=== PATIENT | female | born 1990 | race Caucasian/White ===

== ENCOUNTER 2016-12-15 08:32 | Inpatient (IN) | payer MEDICAID, OTHER ==
[~2016-12-15] VITALS: Ht 162.6 cm; Wt 112.9 kg
[~2016-12-15 08:32] MED LIST: COLACE100 MG PO; MOTRIN600 MG PO; NORCO 325 MG-51 TAB PO
[2016-12-15 08:43] VITALS: BP 135/86
--- NOTE | 2016-12-15 09:18 | NUR ---
Patient ambulated to bed 7. RN evaluating patient at bedside.
[2016-12-15] MEDS ORDERED: NACL 0.9% 500 ML IV ONE (09:26)
[2016-12-15] MEDS ORDERED: KETOROLAC 30 MG/ML VIAL IVP ONE (09:30)
[2016-12-15] MEDS ORDERED: ONDANSETRON 4 MG/2 ML VIAL IVP ONE (09:30)
--- NOTE | 2016-12-15 09:30 | NUR ---
US GALLBLADDER AT BEDSIDE
--- NOTE | 2016-12-15 09:31 | NUR ---
PATIENT PRESENTS TO ED WITH C/O RUQ PAIN X 12 DAYS WITH MODERATE NAUSEA BUT DENIES VOMITTING;HX OF CHOLELITHIASIS . SKIN IS PINK/WARM/DRY; AAOX4 WITH EVEN AND STEADY GAIT; LUNGS CLEAR BL; HR EVEN AND REGULAR; PT DENIES ANY FEVER, CP, SOB, OR COUGH AT THIS TIME; PATIENT STATES PAIN OF 8/10 ABDOMINAL PAIN AT THIS TIME;PATIENT POSITIONED FOR COMFORT; HOB ELEVATED; BEDRAILS UP X2; BED DOWN.ALL MONITORS IN PLACED; ER MD MADE AWARE OF PT STATUS.
--- NOTE | 2016-12-15 10:00 | NUR ---
MEDICATED FOR NAUSEA/PAIN. MONITORED
[2016-12-15] MEDS: NACL 0.9% 1,000 ML IV SCH ×2 (10:47→19:55)
[2016-12-15] MEDS ORDERED: DOCUSATE SODIUM 100 MG GELCAP PO PRN (10:50)
[2016-12-15] MEDS ORDERED: ACETAMINOPHEN 325 MG TAB PO PRN (10:50)
[2016-12-15] MEDS ORDERED: MORPHINE SULFATE 2 MG/ML SYR IVP PRN (10:50)
--- NOTE | 2016-12-15 11:11 | NUR ---
Patient will be admitted to care of DR MCKEON. Admited to TELE. Will go to room 105 A. Belongings list completed. Report to ANDI HOOKER.
[2016-12-15 11:20] VITALS: BP 116/77
--- NOTE | 2016-12-15 11:20 | NUR ---
PT ARRIVED AT UNIT FROM ER VIA NUNU, PT IS AAOX4, ON ROOM AIR, IV TO L WRIST 20 G INFUSING WELL, SKIN IS INTACT, INITIAL ASSESSMENT COMPLETED, ORIENTED THE PT TO ROOM AND ENVIRONMENT, DISCUSS PLAN OF CARE, PT VERBALIZED UNDERSTANDING, ALL SAFETY PRECAUTION INITIATED, CALL ,LIGHT WITHIN REACH, WILL CONTINUE TO MONITOR.
--- NOTE | 2016-12-15 13:10 | NUR ---
PT RESTING, NO DISTRESS NOTED, CALL LIGHT WITHIN REACH, WILL CONTINUE TO MONITOR
[2016-12-15] MEDS: HYDROmorphone 1 MG/ML AMP IVP PRN (14:53)
--- NOTE | 2016-12-15 15:01 | NUR ---
DUE MEDICATION GIVEN, PT TOLERATE WELL, C/O OF PAIN, MEDICATED PER MD ORDER, PT RESTING IN BED, NO DISTRESS NOTED, WILL MONITOR.
[2016-12-15 15:57] VITALS: BP 123/77
--- NOTE | 2016-12-15 16:48 | NUR ---
PT CURRENTLY SLEEPING, EASILY AROUSED, NO SIGN OF DISTRESS, CALL LIGHT WITHIN REACH, WILL CONTINUE TO MONITOR.
--- NOTE | 2016-12-15 18:10 | NUR ---
PT SLEEPING EASY TO AROUSE, NO DISTRESS NOTED, CALL LIGHT WITHIN REACH, WILL CONTINUE TO MONITOR.
--- NOTE | 2016-12-15 19:20 | NUR ---
ENDORSED PLAN OF CARE TO NIGHT NURSE, PT IN STABLE CONDITION. PT CURRENTLY IN BED, FAMILY AT BEDSIDE
--- NOTE | 2016-12-15 19:21 | NUR ---
RECEIVED REPORT FROM AM NURSE. PT SITTING UP IN BED, AWAKE, ALERT AND ORIENTED X4. FAMILY MEMBER AT THE BEDSIDE. NO SIGNS OF ACUTE DISTRESS NOTED. ON ROOM AIR. IV ACCESS IS ASYMPTOMATIC AND PATENT. BOWEL AND BLADDER CONTINENCE. PT DENIES PAIN. PLAN OF CARE DISCUSSED, PT VERBALIZED UNDERSTANDING. BED ON LOW POSITION, BILATERAL HALF SIDE RAILS UP, CALL LIGHT WITHIN REACH. WILL CONTINUE TO MONITOR.
[2016-12-15] MEDS: AMPICILLIN 1,000 MG in NACL 0.9% 50 ML IV SCH (19:56)
[2016-12-15 20:00] VITALS: BP 112/69
[2016-12-15 21:31] VITALS: BP 112/69
[2016-12-16] VITALS (7 sets, daily range): BP systolic 101–132; BP diastolic 57–86
[2016-12-16] MEDS: NACL 0.9% 1,000 ML IV SCH ×4 (01:06→20:31)
[2016-12-16] MEDS: HYDROmorphone 1 MG/ML AMP IVP PRN (01:27)
--- NOTE | 2016-12-16 02:12 | NUR ---
PT IS SLEEPING, NO SIGNS OF ACUTE DISTRESS, BED ON LOW POSITION, BILATERAL HALF SIDE RAILS UP, CALL LIGHT WITHIN REACH, WILL CONTINUE TO MONITOR.
[2016-12-16] MEDS: AMPICILLIN 1,000 MG in NACL 0.9% 50 ML IV SCH ×3 (05:04→20:30)
--- NOTE | 2016-12-16 07:10 | NUR ---
ENDORSED PT TO AM NURSE FOR CONTINUITY OF CARE. PT IS STABLE.
--- NOTE | 2016-12-16 07:20 | NUR ---
RECEIVED ON BED AAOX4. NO SOB NOTED. NO C/O PAIN AT THIS TIME. IV TO LT AC PATENT AND INTACT. CHEST CLEAR. ABDOMEN SOFT, BOWEL SOUNDS PRESENT. NPO MAINTAINED. NO EDEMA NOTED. INSTRUCTED PT TO CALL FOR ASSISTANCE, CALL LIGHT WITHIN REACH, PT VERBALIZED UNDERSTANDING.
--- NOTE | 2016-12-16 08:44 | NUR ---
PATIENT HAS BEEN SCREENED AND CATEGORIZED HIGH NUTRITION RISK. PATIENT WILL BE SEEN WITHIN 1-2 DAYS OF ADMISSION. 12/15/16-12/16/[address]
[2016-12-16] MEDS: LACTOBACILLUS RHAMNOSUS GG 1 EACH CAP PO SCH (08:47)
--- NOTE | 2016-12-16 09:20 | NUR ---
SPOKE WITH GEOVANNY FROM [facility] REGARDING HIDA SCAN. GEOVANNY STATED SHE WILL BE HERE AROUND 1 PM TODAY. NPO MAINTAINED PT, VERBALIZED UNDERSTANDING.
[2016-12-16] MEDS: HYDROcodone/APAP 7.5/325 MG 1 TAB PO PRN ×2 (09:22→22:49)
[2016-12-16] MEDS: ONDANSETRON 4 MG/2 ML VIAL IM/IVP PRN ×3 (09:27→22:49)
--- NOTE | 2016-12-16 12:55 | NUR ---
GEOVANNY WHEELED PT TO THE NUCLEAR MED IN STABLE CONDITION. NO SOB NOTED. NO COMPLAINTS MADE. NPO MAINTAINED.
[2016-12-16] MEDS ORDERED: MORPHINE SULFATE 2 MG/ML SYR IVP PRN (14:07)
--- NOTE | 2016-12-16 14:18 | NUR ---
MORPHINE 2 MG IVP GIVEN ORDERED FOR HIDA SCAN PROCEDURE. PAIN SCALE IS ZERO PER PT.
--- NOTE | 2016-12-16 14:34 | NUR ---
12/16/16 RD INITIAL ASSESSMENT COMPLETED PLEASE REFER TO NUTRITION ASSESSMENT UNDER CARE ACTIVITY FOR ESTIMATED NUTRITIONAL NEEDS. 1. WHEN MEDICALLY FEASIBLE, RESUME DIET AND ADVANCE TOLERATED TO LOW FAT DIET WITHIN 2-3 DAYS 2. PROVIDE NUTRITION THERAPY EDUCATION NEEDED 3. RD TO FOLLOW UP WITHIN 2-3 DAYS; HIGH RISK DAKOTAH PEREZ RD
--- NOTE | 2016-12-16 15:15 | NUR ---
PT CAME BACK FROM [facility] IN STABLE CONDITION.
--- NOTE | 2016-12-16 16:14 | NUR ---
DR. GARSIA CALLED AND ASKED FOR THE RESULTS OF HIDA SCAN. NO RESULTS FOUND ON EMR. SPOKE WITH PEDRO LUIS FROM RADIOLOGY, RESULTS HAS NOT BEEN READ BY THE RADIOLOGIST YET. PEDRO LUIS STATED THEY WILL GIVE ME A CALL WHEN THE RESULTS ARE IN.
--- NOTE | 2016-12-16 17:30 | NUR ---
pt seen by Dr. Garzon with new orders.
--- NOTE | 2016-12-16 17:40 | NUR ---
consent for surgery signed by pt. procedure explained by Dr. Garzon at the bedside earlier. pt verbalized understanding.
--- NOTE | 2016-12-16 18:00 | NUR ---
PT TOLERATED LOW FAT DIET FOR DINNER. INSTRUCTED ON NPO POST MIDNIGHT TONIGHT, PT VERBALIZED UNDERSTANDING.
--- NOTE | 2016-12-16 18:56 | NUR ---
PT RESTING. NO SOB NOTED. NO COMPLAINTS MADE. WILL ENDORSE TO NEXT SHIFT NURSE FOR CONTINUITY OF CARE.
--- NOTE | 2016-12-16 19:20 | NUR ---
RECEIVED PT AWAKE ON BED WITH FAMILY MEMBERS AT BEDSIDE, VITAL SIGNS STABLE, DENIES ANY PAIN, INSTRUCTED NPO AFTER MIDNIGHT FOR SURGERY IN AM, VERBALIZED UNDERSTANDING, IVF INFUSING WELL, PLAN OF CARE DISCUSSED, CALL LIGHT WITHIN REACH.
--- NOTE | 2016-12-16 20:30 | NUR ---
PT AMBULATORY TO BR WITH STEADY GAIT, DUE IV ANTIBIOTIC ADMINISTERED, ALL NEEDS ATTENDED.
--- NOTE | 2016-12-16 22:00 | NUR ---
PT REQUESTING FOR SNACK, TURKEY SANDWICH PROVIDED, CONSUMED 100%, AWARE OF NPO AFTER MIDNIGHT, MONITORED CLOSELY.
[2016-12-17] VITALS (7 sets, daily range): BP systolic 99–125; BP diastolic 55–80
--- NOTE | 2016-12-17 | NUR ---
PT SLEEPING, EASILY AROUSABLE, VITAL SIGNS STABLE, DENIES PAIN AT THIS TIME, NPO AFTER MIDNIGHT ORDERED, IVF INFUSING WELL, CONTINUE TO MONITOR CLOSELY.
[2016-12-17] MEDS: NACL 0.9% 1,000 ML IV SCH ×2 (02:47→04:41)
--- NOTE | 2016-12-17 04:00 | NUR ---
PT SLEEPING, EASILY AROUSABLE, VITAL SIGNS STABLE, DENIES ANY PAIN, IVF INFUSING WELL, MONITORED CLOSELY.
[2016-12-17] MEDS: AMPICILLIN 1,000 MG in NACL 0.9% 50 ML IV SCH ×3 (04:41→20:42)
--- NOTE | 2016-12-17 05:50 | NUR ---
ROUNDED ON PT, SEEN SLEEPING, NO SIGNS OF DISTRESS, MAINTAINED ON NPO, IVF INFUSING WELL, MONITORED CLOSELY.
--- NOTE | 2016-12-17 07:10 | NUR ---
PT SLEEPING, NO SIGNS OF DISTRESS, REPORT GIVEN TO RN NORMA FOR CONTINUITY OF CARE.
--- NOTE | 2016-12-17 07:30 | NUR ---
RECEIVED ON BED AAOX4. NO SOB NOTED. NO C/O PAIN AT THIS TIME. IV TO LT AC PATENT AND INTACT. CHEST CLEAR. ABDOMEN SOFT, BOWEL SOUNDS PRESENT. NPO MAINTAINED FOR PROCEDURE. NO EDEMA NOTED. INSTRUCTED PT TO CALL FOR ASSISTANCE, CALL LIGHT WITHIN REACH, PT VERBALIZED UNDERSTANDING.
[2016-12-17] MEDS: FERROUS SULFATE 325 MG TABEC PO SCH (08:00)
--- NOTE | 2016-12-17 08:25 | NUR ---
PT WHEELED TO SURGERY IN STABLE CONDITION. NO COMPLAINTS MADE. NPO MAINTAINED. PT VERBALIZED UNDERSTANDING.
[2016-12-17] MEDS: LACTOBACILLUS RHAMNOSUS GG 1 EACH CAP PO SCH (08:33)
[2016-12-17] MEDS ORDERED: GLYCOPYRROLATE 0.2 MG/ML VIAL ONE (09:15)
[2016-12-17] MEDS ORDERED: ROCURONIUM 50 MG/5 ML VIAL IV ONE (09:15)
[2016-12-17] MEDS ORDERED: DESFLURANE 240 ML BTL INH ONE (09:15)
[2016-12-17] MEDS ORDERED: ONDANSETRON 4 MG/2 ML VIAL ONE ×2 (09:15→13:30)
[2016-12-17] MEDS ORDERED: DEXAMETHASONE 4 MG/ML VIAL ONE (09:15)
[2016-12-17] MEDS ORDERED: SUCCINYLCHOLINE CHLORIDE 200 MG/10 ML VIAL IVP ONE (09:15)
[2016-12-17] MEDS ORDERED: BUPIVACAINE-MPF 0.25% 30 ML VIAL INJ ONE (09:25)
[2016-12-17] MEDS ORDERED: MEPERIDINE 50 MG/ML SYR ONE (09:31)
[2016-12-17] MEDS ORDERED: MIDAZOLAM 2 MG/2 ML VIAL ONE (09:31)
[2016-12-17] MEDS ORDERED: fentaNYL 0.05 MG/ML VIAL ONE (09:31)
[2016-12-17] MEDS ORDERED: LEVOFLOXACIN 500 MG/D5W PREMIX 100 ML IV ONE (09:33)
[2016-12-17] MEDS ORDERED: metroNIDAZOLE 500 MG/NS PREMIX 100 ML IV ONE (10:19)
[2016-12-17] MEDS ORDERED: MIDAZOLAM 2 MG/2 ML VIAL IVP ONE (10:25)
[2016-12-17] MEDS ORDERED: MEPERIDINE 25 MG/ML SYR IVP PRN ×2 (10:25)
[2016-12-17] MEDS ORDERED: METOCLOPRAMIDE 10 MG/2 ML INJ VIAL IVP PRN (10:25)
[2016-12-17] MEDS ORDERED: THROMBIN KIT 20 MU VIAL TP ONE (10:57)
[2016-12-17] MEDS ORDERED: MEPERIDINE 25 MG/ML SYR ONE (11:52)
--- NOTE | 2016-12-17 12:30 | NUR ---
PT BACK FROM PACU INSTABLE CONDITION S/P LAPAROSCOPIC CHOLECYSTECTOMY. PT AAO, SLIGHTLY DROWSY. VITAL SIGNS STABLE. SCD'S IN PLACE. WITH 5 SMALL ABDOMINAL INCISIONS, SEALED WITH DERMABOND, SURGICAL SITES CLEAN, DRY AND INTACT, OPEN TO AIR.
[2016-12-17] MEDS: DEXT 5% / NACL 0.45% 1,000 ML IV SCH ×2 (12:51→21:25)
[2016-12-17] MEDS ORDERED: ceFAZolin 1,000 MG VIAL ONE (13:30)
[2016-12-17] MEDS ORDERED: PROPOFOL 200 MG/20 ML VIAL IV ONE (13:30)
--- NOTE | 2016-12-17 13:40 | NUR ---
DILAUDID IV PULLED OUT FROM THE PYXIS FOR PT'S 10 POST OP PAIN BUT PT REFUSED TO TAKE IT. RISKS AND BENEFITS EXPLAINED TO PT, VERBALIZED UNDERSTANDING. DILAUDID IVP RETURNED TO PHARMACY UNOPENED. PHARMACIST (JESSICA) MADE AWARE.
[2016-12-17] MEDS: HYDROcodone/APAP 7.5/325 MG 1 TAB PO PRN ×3 (13:51→23:56)
--- NOTE | 2016-12-17 15:53 | NUR ---
PT ABLE TO AMBULATE TO THE BATHROOM WITH MODERATE ASSISTANCE, PT VOIDED FREELY. ACTIVITY TOLERATED WELL.
[2016-12-17] MEDS: HYDROmorphone 1 MG/ML AMP IVP PRN (16:39)
--- NOTE | 2016-12-17 17:00 | NUR ---
PROVIDED PT WITH INCENTIVE SPIROMETRY, INSTRUCTIONS GIVEN, PT VERBALIZED UNDERSTANDING.
[2016-12-17] MEDS: ONDANSETRON 4 MG/2 ML VIAL IM/IVP PRN (17:51)
--- NOTE | 2016-12-17 18:57 | NUR ---
PT RESTING. FAMILY AT THE BEDSIDE VISITING. NO SOB NOTED. NO SIGNS OF PAIN AT THIS TIME. WILL ENDORSE TO NEXT SHIFT NURSE FOR CONTINUITY OF CARE.
--- NOTE | 2016-12-17 19:20 | NUR ---
RECEIVED PT AWAKE ON BED TALKING TO FAMILY MEMBERS AT BEDSIDE, COMPLAINING OF PAIN, WILL MEDICATE PRN WHEN DUE, S/P LAP CHOLECYSTECTOMY WITH SMALL ABDOMINAL INCISION X5, SEALED WITH DERMABOND, OPEN TO AIR, NO SIGNS OF BLEEDING OR DRAINAGE, TOLERATING CLEAR LIQUID, NOT PASSING GAS YET, PLAN OF CARE DISCUSS, CALL LIGHT WITHIN REACH.
--- NOTE | 2016-12-17 20:00 | NUR ---
PT IN PAIN, MEDICATED PRN WITH NORCO, AMBULATED TO BR WITH ASSIST AND VOIDED FREELY, ASSISTED BACK TO BED, ENCOURAGE TO USE INCENTIVE SPIROMETER WHILE AWAKE, VERBALIZED UNDERSTANDING, PUT BACK ON IVF OF D5 1/2 NS @ 100ML/H, ALL NEEDS ATTENDED.
--- NOTE | 2016-12-17 20:50 | NUR ---
PT UNABLE TO DO IS DUE TO PAIN
--- NOTE | 2016-12-17 23:10 | NUR ---
ASSISTED TO BR BY DEMURRAGE AGENT, VOIDED FREELY, COMPLAINING OF PAIN, WILL MEDICATE WHEN DUE, VITAL SIGNS STABLE, AFEBRILE, CONTINUE TO MONITOR CLOSELY.
[2016-12-18] VITALS: BP 133/74
[2016-12-18] MEDS: HYDROcodone/APAP 7.5/325 MG 1 TAB PO PRN ×4 (03:57→20:14)
--- NOTE | 2016-12-18 04:02 | NUR ---
PT AWAKE COMPLAINING OF PAIN, MEDICATED PRN WITH NORCO PO, MONITORED CLOSELY.
[2016-12-18] MEDS: AMPICILLIN 1,000 MG in NACL 0.9% 50 ML IV SCH ×3 (04:34→20:14)
--- NOTE | 2016-12-18 05:18 | NUR ---
PT AMBULATED TO WITH ASSIST, VOIDED FREELY, IV ANTIBIOTIC INFUSING WELL, VERBALIZE BURPING BUT NOT PASSING GAS YET, ABDOMINAL INCISIONS INTACT, NO SIGNS OF BLEEDING OR DRAINAGE NOTED, MONITORED CLOSELY.
--- NOTE | 2016-12-18 06:55 | NUR ---
PT ASSISTED TO BR AND VOIDED FREELY, MADE AWARE OF NEXT DUE PRN PAIN MEDICATION, ENCOURAGE TO USE IS, MONITORED CLOSELY.
--- NOTE | 2016-12-18 07:15 | NUR ---
RECEIVED REPORT FROM ANDI GARCÍA. PATIENT IS ALERT, AWAKE AND ORIENTED X4. NO SIGNS AND SYMPTOMS OF DISTRESS NOTED AT THIS TIME. PATIENT LUNG SOUNDS ARE CLEAR. BOWEL SOUNDS ARE HYPOACTIVE. HAS IV IN LEFT HAND 22G HEPLOCK, AND IV IN RIGHT HAND 22G INFUSING FLUID. PATIENT HAS SCD ON. BED IN LOWEST POSITION, SIDERAILS UP X2, CALL LIGHT WITHIN REACH. WILL CONTINUE TO MONITOR.
--- NOTE | 2016-12-18 07:20 | NUR ---
PT AWAKE, NO SIGNS OF DISTRESS, REPORT GIVEN TO ANDI GUTIERREZ FOR CONTINUITY OF CARE.
[2016-12-18] MEDS: DEXT 5% / NACL 0.45% 1,000 ML IV SCH ×2 (07:25→17:25)
[2016-12-18 08:00] VITALS: BP 132/87
--- NOTE | 2016-12-18 09:00 | NUR ---
PATIENT LAYING BED, REQUESTED THAT SHE WANTS TO WALK TO THE BATHROOM BUT NEEDS HELP. WILL ASSIST THE PATIENT.
[2016-12-18] MEDS: LACTOBACILLUS RHAMNOSUS GG 1 EACH CAP PO SCH (09:20)
--- NOTE | 2016-12-18 09:20 | NUR ---
ASSISTED PATIENT TO BATHROOM, AND BACK INTO BED. BED IN LOWEST POSITION, HOB AT SEMI-FOWLERS, CALL LIGHT PLACED WITHIN REACH. PATIENT STABLE AT THIS TIME.
[2016-12-18] MEDS: FERROUS SULFATE 325 MG TABEC PO SCH (09:23)
--- NOTE | 2016-12-18 13:50 | NUR ---
DR. GARSIA GAVE THE OKAY TO DISCHARGE PATIENT. PATIENT STATED THAT SHE STILL HAS PAIN AND WOULD LIKE A PAIN MED BEFORE SHE GOES HOME SO THAT IT COVERS HERE WHILE SHE GETS HER PRESCRIPTION FILLED. WILL TALK TO DR. ZALDIVAR.
--- NOTE | 2016-12-18 14:00 | NUR ---
DR ZALDIVAR STATED THAT HE WOULD LIKE TO KEEP THE PATIENT HERE FOR TODAY AND TONIGHT SINCE SHE IS STILL IN PAIN. POSSIBLE DISCHARGE IN THE MORNING.
[2016-12-18 16:00] VITALS: BP 118/71
--- NOTE | 2016-12-18 19:20 | NUR ---
ENDORSED PATIENT TO TOOL DESIGN DRAFTER RN FOR CONTINUITY OF CARE. PATIENT IS IN STABLE CONDITION AT THIS TIME.
--- NOTE | 2016-12-18 19:25 | NUR ---
RECEIVED REPORT FROM AM NURSE. PT IS AAOX4, SITTING UP IN BED, WITH FAMILY MEMBER AT THE BEDSIDE. SHOWING NO SIGNS OF ACUTE DISTRESS. ON ROOM AIR, IV ACCESS IS ASYMPTOMATIC AND PATENT. BOWEL AND BLADDER CONTINENCE. PLAN OF CARE DISCUSSED, PT VERBALIZED UNDERSTANDING. BED ON LOW POSITION, BILATERAL HALF SIDE RAILS UP, CALL LIGHT WITHIN REACH, WILL CONTINUE TO MONITOR.
[2016-12-18 20:00] VITALS: BP 133/79
[2016-12-18] MEDS ORDERED: HYDROmorphone 1 MG/ML AMP IVP PRN (23:40)
--- NOTE | 2016-12-18 23:44 | NUR ---
PT STATES SHE IS IN PAIN 12/24, DR. RAY MADE AWARE AND WILL ORDER NEW MEDICATION FOR SEVERE PAIN. WILL AWAIT NEW ORDER.
[2016-12-19] VITALS: BP 118/81
--- NOTE | 2016-12-19 01:29 | NUR ---
PT IS SLEEPING, ON O2 2L VIA NC. NO SIGNS OF ACUTE DISTRESS, BED ON LOW POSITION, BILATERAL HALF SIDE RAILS UP, CALL LIGHT WITHIN REACH, WILL CONTINUE TO MONITOR.
[2016-12-19] MEDS: DEXT 5% / NACL 0.45% 1,000 ML IV SCH (03:25)
[2016-12-19] MEDS: HYDROcodone/APAP 7.5/325 MG 1 TAB PO PRN ×2 (03:34→09:02)
[2016-12-19] MEDS: AMPICILLIN 1,000 MG in NACL 0.9% 50 ML IV SCH ×2 (04:20→13:04)
--- NOTE | 2016-12-19 05:19 | NUR ---
PT IS SLEEPING, EASY TO AROUSE. NO SIGNS OF ACUTE DISTRESS, BED ON LOW POSITION, BILATERAL HALF SIDE RAILS UP, CALL LIGHT WITHIN REACH, WILL CONTINUE TO MONITOR.
--- NOTE | 2016-12-19 07:20 | NUR ---
RECEIVED REPORT FROM INTERLOCKER RN. PATIENT IS AWAKE IN BED, NO SIGNS AND SYMPTOMS OF DISTRESS NOTED AT THIS TIME. LUNG SOUNDS ARE CLEAR, BOWEL SOUNDS ARE ACTIVE. HAS LEFT HAND IV 22G ON SALINE LOCK, AND RIGHT HAND IV 22G ON SALINE LOCK. SITES ARE CLEAN, DRY AND PATENT. INFORMED PATIENT OF PLAN OF CARE, PATIENT VERBALIZED UNDERSTANDING. BED IN LOWEST POSITION, SIDERAILS UP X2, CALL LIGHT WITHIN REACH. WILL CONTINUE TO MONITOR.
--- NOTE | 2016-12-19 07:25 | NUR ---
ENDORSED PT TO AM NURSE. PT IN STABLE CONDITION.
[2016-12-19 08:00] VITALS: BP 112/62
[2016-12-19] MEDS: LACTOBACILLUS RHAMNOSUS GG 1 EACH CAP PO SCH (09:01)
[2016-12-19] MEDS: FERROUS SULFATE 325 MG TABEC PO SCH (09:02)
--- NOTE | 2016-12-19 10:15 | NUR ---
12/19/16 RD FOLLOW-UP ASSESSMENT COMPLETED PLEASE REFER TO NUTRITION ASSESSMENT UNDER CARE ACTIVITY FOR ESTIMATED NUTRITIONAL NEEDS. 1. CONTINUE REGULAR DIET 2. RD TO FOLLOW-UP 3-5 DAYS, MODERATE RISK DAKOTAH PEREZ RD
[2016-12-19] MEDS ORDERED: POTASSIUM CHLORIDE 10 MEQ TABER PO SCH (13:00)
[2016-12-19] MEDS ORDERED: COLACE100 M1 PO (14:41)
[2016-12-19] MEDS ORDERED: MACROBID100 M1 PO (14:41)
[2016-12-19] MEDS ORDERED: PROBIOTIC & ACI1 CAP PO (14:41)
[2016-12-19] MEDS ORDERED: NORCO 325 MG-7.1 TAB PO (14:43)
[2016-12-19 15:25] VITALS: BP 119/67
--- NOTE | 2016-12-19 16:25 | NUR ---
PATIENT BEING DISCHARGED. INSTRUCTIONS GIVEN ON WHEN TO FOLLOW UP. NO STRENOUS ACTIVITY INCLUDING EXERCISE FOR A COUPLE OF WEEKS. PRESCRIPTION GIVEN. INSTRUCTED ON S/S TO SEEK EMERGENCY MEDICAL ATTENTION. PATIENT VERBALIZED UNDERSTANDING. IV SITES WERE ON SALINE LOCK. DISCONTINUED IV SITES, APPLIED DRESSING. CLEAN DRY AND INTACT. NO SIGNS AND SYMPTOMS OF DISTRESS NOTED. ID BANDS REMOVED.
== END 2016-12-19 16:25 | disposition home or self-care (01) | DRG 263 ==
LOC: MED 08:32 → MTU 10:47
PROVIDERS: ADMIT Family Medicine Sports Medicine; ATTEND Family Medicine Sports Medicine
PROC: 0FT44ZZ Resection of Gallbladder, Percutaneous Endoscopic Approach (ICD-10-PCS; principal; 2016-12-17 09:15)
DX: K80.00 Calculus of gallbladder with acute cholecystitis without obstruction (principal); E44.0 Moderate protein-calorie malnutrition; E11.65 Type 2 diabetes mellitus with hyperglycemia; K82.1 Hydrops of gallbladder; Z68.41 Body mass index [BMI] 40.0-44.9, adult; N39.0 Urinary tract infection, site not specified; D64.9 Anemia, unspecified; E78.1 Pure hyperglyceridemia; F41.9 Anxiety disorder, unspecified; E66.01 Morbid (severe) obesity due to excess calories; R74.0 Nonspecific elevation of levels of transaminase and lactic acid dehydrogenase [LDH]; Z79.899 Other long term (current) drug therapy

== ENCOUNTER 2017-09-30 02:53 | Emergency (ER) | payer OTHER ==
[~2017-09-30] VITALS: Ht 157.5 cm; Wt 108.9 kg
[~2017-09-30 02:53] MED LIST changes: +ACET-2863 PO; -COLACE100 MG PO; +DOCU-299 PO; -MOTRIN600 MG PO; +NITR100C7 PO; -NORCO 325 MG-51 TAB PO; +NUTR1CAP70 PO
[2017-09-30 03:00] VITALS: BP 142/97
--- NOTE | 2017-09-30 03:02 | NUR ---
PT CAME IN WITH C/O SWELLING IN LIPS AND SOB. PT STATES SHE HAS ANXIETY FROM THE SWELLING. NO MED HX AND NKA . DENIES N/V/D; SKIN IS PINK/WARM/DRY; AAOX4 WITH EVEN AND STEADY GAIT; LUNGS CLEAR BL; HR EVEN AND REGULAR; PT DENIES ANY FEVER, CP, SOB, OR COUGH AT THIS TIME; PATIENT STATES PAIN OF 0/10 AT THIS TIME; VSS; PATIENT POSITIONED FOR COMFORT; HOB ELEVATED; BEDRAILS UP X2; BED DOWN. ER MD MADE AWARE OF PT STATUS.
--- NOTE | 2017-09-30 03:05 | NUR ---
PT TO ER BED 8
[2017-09-30] MEDS ORDERED: predniSONE 20 MG TAB PO ONE (03:40)
--- NOTE | 2017-09-30 03:53 | NUR ---
Patient discharged with v/s stable. Written and verbal after care instructions given and explained. Patient alert, oriented and verbalized understanding of instructions. Ambulatory with steady gait. All questions addressed prior to discharge. ID band removed. Patient advised to follow up with PMD. Rx of PREDNISONE AND DIPHENHYDRAMINE HYDROCHLORIDE WERE given. Patient educated on indication of medication including possible reaction and side effects. Opportunity to ask questions provided and answered.
[2017-09-30 03:55] VITALS: BP 142/97
== END 2017-09-30 03:53 | disposition home or self-care (01) ==
LOC: MED 02:53
DX: T78.49XA Other allergy, initial encounter (principal); R20.2 Paresthesia of skin; Z79.899 Other long term (current) drug therapy; X58.XXXA Exposure to other specified factors, initial encounter
CPT/HCPCS: 81002; 81025; 99283; J7512

== ENCOUNTER 2017-11-01 17:23 | Emergency (ER) | payer OTHER ==
[~2017-11-01] VITALS: Ht 157.5 cm; Wt 113.4 kg
--- NOTE | 2017-11-01 17:30 | NUR ---
PT AMBULATES TO BED 4
[2017-11-01 17:35] VITALS: BP 127/83
--- NOTE | 2017-11-01 17:35 | NUR ---
27 YO FEMALE BIB SELF FOR REFERRAL FROM OUTSIDE CLINIC FOR ULTRASOUND TO R/O DVT; PT C/O RIGHT CALF SORENESS PAIN X YESTERDAY." PT HAS NO SWELLING NO DISCOLORATION, NO EXCESS WARMTH, AND DENIES LONG FLIGHT OR CAR TRIPS; AMBULATORY WITH STEADY GAIT; PT DENIES N/V/D; AAOX4; LUNGS CLEAR BL; HR EVEN AND REGULAR; PT DENIES ANY FEVER, CP, SOB, OR COUGH AT THIS TIME; PATIENT STATES PAIN OF 6/10 AT THIS TIME; VSS; PATIENT POSITIONED FOR COMFORT; HOB ELEVATED; BEDRAILS UP X1; BED DOWN. ER MD MADE AWARE OF PT STATUS. HX---DENIES RX---NONE
--- NOTE | 2017-11-01 17:39 | NUR ---
URINE CUP HANDED TO PT FOR URINE SAMPLE
--- NOTE | 2017-11-01 17:40 | NUR ---
URINE COLLECTED FROM PT AND GIVEN TO LAB
--- NOTE | 2017-11-01 17:51 | NUR ---
Patient being evaluated by physician at bedside.
[2017-11-01] MEDS ORDERED: KETOROLAC 30 MG/ML VIAL IVP ONE (18:00)
[2017-11-01 18:23] LABS: BASOPHILS % (AUTO) 0.3 % (0.0-2.0); EOSINOPHILS # (AUTO) 0.1 K/uL (0-0.4); EOSINOPHILS % (AUTO) 1.3 % (0.0-4.0); HEMATOCRIT 35.7 % (36-48); HEMOGLOBIN 11.5 g/dL (12.0-16.0); LYMPHOCYTES # (AUTO) 1.6 K/uL (2.5-16.5); MEAN CORPUSCULAR HEMOGLOBIN 25 pg (27-31); MEAN CORPUSCULAR HGB CONC 32 g/dL (33-37); MEAN CORPUSCULAR VOLUME 76.9 fL (80-94); MONOCYTES # (AUTO) 0.5 K/uL (0.8-1.0); MONOCYTES % (AUTO) 8.7 % (1.7-9.3); NEUTROPHILS # (AUTO) 3.3 K/uL (1.8-7.7); NEUTROPHILS % (AUTO) 60.7 % (42.2-75.2); PLATELET COUNT (AUTO) 323 K/uL (140-450); RED BLOOD CELL COUNT(AUTO) 4.65 MIL/uL (4.20-5.40); RED CELL DISTRIBUTION WIDTH 14.7 % (11.6-13.7); WHITE BLOOD COUNT (AUTO) 5.4 K/uL (4.8-10.8)
[2017-11-01 18:23] LABS: APPEARANCE,URINE SL CLOUDY (CLEAR); BILIRUBIN,URINE NEGATIVE (NEGATIVE); BLOOD, URINE 2+ (NEGATIVE); COLOR,URINE YELLOW (YELLOW); LEUKOCYTE ESTERASE ,URINE 1+ (NEGATIVE); NITRITE, URINE NEGATIVE (NEGATIVE); PH,URINE 6.5 (5.0-9.0); UGLUCOSE NEGATIVE (NEGATIVE)
[2017-11-01 18:35] LABS: ANION GAP 11.8 (8-16); CREATININE 0.5 mg/dL (0.6-1.3); POTASSIUM 3.8 mmol/L (3.5-5.1)
[2017-11-01 18:42] LABS: RBC,URINE 3-10 (FEW) /HPF (0-5)
[2017-11-01 18:52] LABS: ALBUMIN 3.7 g/dL (3.4-5.0); TOTAL BILIRUBIN 0.7 mg/dL (0.0-1.0)
[2017-11-01 18:54] LABS: D-DIMER < 100 ng/ml (0-400)
[2017-11-01] MEDS ORDERED: LEVOFLOXACIN 500 MG TAB PO ONE (19:05)
[2017-11-01 19:14] LABS: PROTHROMBIN TIME 9.7 secs (10.8-13.4)
--- NOTE | 2017-11-01 19:14 | NUR ---
REPORT FROM ANDI XIE
[2017-11-01 21:10] VITALS: BP 124/79
--- NOTE | 2017-11-01 21:10 | NUR ---
Patient discharged with v/s stable. Written and verbal after care instructions given and explained. Patient alert, oriented and verbalized understanding of instructions. Ambulatory with steady gait. All questions addressed prior to discharge. ID band removed. Patient advised to follow up with PMD. Rx of LEVAQUIN AND FIORINAL given. Patient educated on indication of medication including possible reaction and side effects. Opportunity to ask questions provided and answered.
== END 2017-11-01 21:10 | disposition home or self-care (01) ==
LOC: MED 17:23
DX: N30.90 Cystitis, unspecified without hematuria (principal); Z90.49 Acquired absence of other specified parts of digestive tract; Z79.891 Long term (current) use of opiate analgesic; Z79.899 Other long term (current) drug therapy
CPT/HCPCS: 36415; 80053; 81001; 81025; 82150; 82550; 83690; 84703; 85025; 85379; 85610; 85730; 87086; 93971; 96374; 99285; J1885

== ENCOUNTER 2018-01-27 03:47 | Emergency (ER) | payer OTHER ==
[~2018-01-27] VITALS: Ht 157.5 cm; Wt 110.2 kg
[~2018-01-27 03:47] MED LIST changes: -ACET-2863 PO; +HYDR-5123 PO
[2018-01-27 03:52] VITALS: BP 126/68
--- NOTE | 2018-01-27 03:52 | NUR ---
TO BED # 2 AMBULATORY, REPORT GIVEN TO CRYSTAL ESCAMILLA
[2018-01-27] MEDS ORDERED: KETOROLAC 30 MG/ML VIAL IM ONE (04:35)
[2018-01-27] MEDS ORDERED: DIAZEPAM 5 MG TAB PO ONE (04:35)
--- NOTE | 2018-01-27 04:40 | NUR ---
PT PRESENTED ER WITH C/O OF CHEST PAIN X 4 DAYS. PT HAS BEEN HAVING PAIN IN THE LEFT ARM. PT STATES IT IS SHARP PAIN PAIN LEVEL IS 5/10. PT HAS BEEN TAKING ASPIRIN FOR PAIN BUT HAS HAD NO RELIEF. MEDICAL HX IS GALLBLADDER REMOVAL. AND ANXIETY. KNA. PT IS A/O X4.SKIN IS PINK/WARM/DRY; EVEN AND STEADY GAIT; VSS; PATIENT POSITIONED FOR COMFORT; HOB ELEVATED; BEDRAILS UP X2; BED DOWN. ER MD MADE AWARE OF PT STATUS.
[2018-01-27 05:27] VITALS: BP 112/83
--- NOTE | 2018-01-27 05:27 | NUR ---
Patient discharged with v/s stable. Written and verbal after care instructions given and explained. Patient alert, oriented and verbalized understanding of instructions. Ambulatory with steady gait. All questions addressed prior to discharge. ID band removed. Patient advised to follow up with PMD. Rx of VALIUM AND NAPROXYN WAS given. Patient educated on indication of medication including possible reaction and side effects. Opportunity to ask questions provided and answered.
== END 2018-01-27 05:27 | disposition home or self-care (01) ==
LOC: MED 03:47
DX: M25.512 Pain in left shoulder (principal); R07.89 Other chest pain; Z79.899 Other long term (current) drug therapy
CPT/HCPCS: 71045; 93005; 96372; 99284; J1885; Q0092

== ENCOUNTER 2018-03-20 23:39 | Emergency (ER) | payer OTHER ==
[~2018-03-20] VITALS: Ht 160 cm; Wt 111.2 kg
[2018-03-20 23:40] VITALS: BP 149/89
--- NOTE | 2018-03-20 23:47 | NUR ---
PT AMB TO ER BED 2 W/O ASST
--- NOTE | 2018-03-20 23:54 | NUR ---
PT PRESENTS TO ED WITH C/O SOB AND THROAT TIGHTNESS S/P EATING SHRIMP PASTA X 1999 TODAY. PT ABLE TO SPEAK CLEARLY IN FULL AND COMPLETE SENTENCES. LUNG SOUNDS CLEAR BILATERALLY. NO S/S OF DISTRESS NOTED. PT PLACED INTO BED, PENDING MD BOYD. PMH--DENIES RX--DENIES
[2018-03-21] MEDS ORDERED: diphenhydrAMINE 50 MG CAP PO ONE ×2 (00:36)
--- NOTE | 2018-03-21 01:04 | NUR ---
Patient discharged with v/s stable. Written and verbal after care instructions given and explained. Patient alert, oriented and verbalized understanding of instructions. Ambulatory with steady gait. All questions addressed prior to discharge. ID band removed. Patient advised to follow up with PMD. Rx of PREDNISONE, BENDRYL given. Patient educated on indication of medication including possible reaction and side effects. Opportunity to ask questions provided and answered.
[2018-03-21 01:05] VITALS: BP 141/86
== END 2018-03-21 01:04 | disposition home or self-care (01) ==
LOC: MED 23:39
DX: T78.1XXA Other adverse food reactions, not elsewhere classified, initial encounter (principal); R06.00 Dyspnea, unspecified; R11.0 Nausea; X58.XXXA Exposure to other specified factors, initial encounter
CPT/HCPCS: 99283; Q0163

== ENCOUNTER 2018-06-15 00:09 | Emergency (ER) | payer OTHER ==
[~2018-06-15] VITALS: Ht 160 cm; Wt 108.9 kg
[2018-06-15 00:30] VITALS: BP 119/65
--- NOTE | 2018-06-15 00:30 | NUR ---
PATIENT AMBULATED TO ER BED 7.
--- NOTE | 2018-06-15 00:45 | NUR ---
PT IS A 27 Y/O FEMALE WHO PRESENTS TO THE ED C/O R FLANK PAIN. PER PT IT HAD STARTED X3 DAYS AGO. PT REPORTS 8/10 SHARP R FLANK PAIN THAT RADIATES TO THE BACK. PT DENIES CP, SOB, REPORTS NAUSEA/DIARRHEA WITH COLD CLAMMY SWEATS AND WEAKNESS. PT AWAKE AND ALERT, RR EVEN/UNLABORED. PT REPOSITIONED FRO COMFORT, BED IN LOWEST POSITION. ER MD DR. OLMEDO NOTIFIED. WILL CONTINUE TO MONITOR.
[2018-06-15] MEDS ORDERED: MORPHINE SULFATE 4 MG/ML SYR IM ONE (01:15)
[2018-06-15 01:23] LABS: BASOPHILS % (AUTO) 0.5 % (0.0-2.0); EOSINOPHILS # (AUTO) 0.1 K/uL (0-0.4); EOSINOPHILS % (AUTO) 0.8 % (0.0-4.0); HEMATOCRIT 37.5 % (36-48); HEMOGLOBIN 12.1 g/dL (12.0-16.0); LYMPHOCYTES # (AUTO) 2.2 K/uL (2.5-16.5); LYMPHOCYTES % (AUTO) 27.6 % (20.5-51.1); MEAN CORPUSCULAR HEMOGLOBIN 24 pg (27-31); MEAN CORPUSCULAR HGB CONC 32 g/dL (33-37); MEAN CORPUSCULAR VOLUME 75.8 fL (80-94); MONOCYTES # (AUTO) 0.6 K/uL (0.8-1.0); NEUTROPHILS # (AUTO) 5.2 K/uL (1.8-7.7); NEUTROPHILS % (AUTO) 64.1 % (42.2-75.2); PLATELET COUNT (AUTO) 327 K/uL (140-450); RED BLOOD CELL COUNT(AUTO) 4.95 MIL/uL (4.20-5.40); RED CELL DISTRIBUTION WIDTH 15.7 % (11.6-13.7); WHITE BLOOD COUNT (AUTO) 8.1 K/uL (4.8-10.8)
[2018-06-15 01:29] LABS: APPEARANCE,URINE SL CLOUDY (CLEAR); BILIRUBIN,URINE NEGATIVE (NEGATIVE); BLOOD, URINE NEGATIVE (NEGATIVE); COLOR,URINE YELLOW (YELLOW); LEUKOCYTE ESTERASE ,URINE NEGATIVE (NEGATIVE); NITRITE, URINE NEGATIVE (NEGATIVE); UGLUCOSE NEGATIVE (NEGATIVE)
[2018-06-15 01:33] LABS: CARBON DIOXIDE 24.8 mmol/L (21-32); CREATININE 0.7 mg/dL (0.6-1.3); POTASSIUM 3.8 mmol/L (3.5-5.1)
[2018-06-15 01:38] LABS: ALBUMIN 3.5 g/dL (3.4-5.0); TOTAL BILIRUBIN 0.7 mg/dL (0.0-1.0)
[2018-06-15 04:00] VITALS: BP 116/64
--- NOTE | 2018-06-15 04:00 | NUR ---
Patient discharged with v/s stable. Written and verbal after care instructions given and explained. Patient verbalized understanding. Ambulatory with steady gait. All questions addressed prior to discharge. Advised to follow up with PMD.
== END 2018-06-15 04:00 | disposition home or self-care (01) ==
LOC: MED 00:09
DX: R10.11 Right upper quadrant pain (principal); R11.0 Nausea; R19.7 Diarrhea, unspecified; Z90.49 Acquired absence of other specified parts of digestive tract; Z79.899 Other long term (current) drug therapy
CPT/HCPCS: 36415; 74176; 76705; 80053; 81003; 81025; 83690; 85025; 99284; Q0092

== ENCOUNTER 2018-10-05 20:22 | Emergency (ER) | payer OTHER ==
[~2018-10-05] VITALS: Ht 157.5 cm; Wt 108.9 kg
[2018-10-05 20:28] VITALS: BP 106/73
--- NOTE | 2018-10-05 22:23 | NUR ---
PT AMBULATED TO BED 4
--- NOTE | 2018-10-05 22:24 | NUR ---
PT TAKEN TO BED 4
--- NOTE | 2018-10-05 22:25 | NUR ---
28/M PRESENTED TO ER ACCOMPANIED BY . C/O RIGHT ABD PAIN 08/24 STARTING AT 0400. DID NOT TAKE ANY MEDICATIONS TO ALEVIATE SYMPTOMS. STATES SHE WAS AND WOKE UP TO RIGHT SIDED PAIN NEAR RIBS. HX GALLBLADDER REMOVAL. STATES OCCASIONAL DIARRHEA. NO N/V.
[2018-10-05 23:25] VITALS: BP 120/74
--- NOTE | 2018-10-05 23:25 | NUR ---
Patient discharged with v/s stable. Written and verbal after care instructions given and explained. Patient alert, oriented and verbalized understanding of instructions. Ambulatory with steady gait. All questions addressed prior to discharge. ID band removed. Patient advised to follow up with PMD. Rx of MAALOX AND PRILOSEC given. Patient educated on indication of medication including possible reaction and side effects. Opportunity to ask questions provided and answered.
== END 2018-10-05 23:25 | disposition home or self-care (01) ==
LOC: MED 20:22
DX: K29.70 Gastritis, unspecified, without bleeding (principal); Z79.891 Long term (current) use of opiate analgesic; Z79.899 Other long term (current) drug therapy; Z79.2 Long term (current) use of antibiotics; Z98.890 Other specified postprocedural states; Z90.49 Acquired absence of other specified parts of digestive tract
CPT/HCPCS: 71101; 81002; 81025; 99284

== ENCOUNTER 2018-10-10 07:52 | Emergency (ER) | payer OTHER ==
[~2018-10-10] VITALS: Ht 160 cm; Wt 120.7 kg
[2018-10-10 07:56] VITALS: BP 120/73
[2018-10-10] MEDS ORDERED: PANTOPRAZOLE 40 MG INJ VIAL IVP ONE (08:30)
[2018-10-10] MEDS ORDERED: KETOROLAC 15 MG/ML VIAL IVP ONE (08:30)
[2018-10-10 09:45] LABS: APPEARANCE,URINE SL CLOUDY (CLEAR); BILIRUBIN,URINE NEGATIVE (NEGATIVE); BLOOD, URINE NEGATIVE (NEGATIVE); COLOR,URINE YELLOW (YELLOW); LEUKOCYTE ESTERASE ,URINE 2+ (NEGATIVE); NITRITE, URINE NEGATIVE (NEGATIVE); UGLUCOSE NEGATIVE (NEGATIVE)
[2018-10-10 09:46] LABS: BASOPHILS % (AUTO) 0.3 % (0.0-2.0); EOSINOPHILS # (AUTO) 0.1 K/uL (0-0.4); HEMATOCRIT 36.4 % (36-48); HEMOGLOBIN 11.9 g/dL (12.0-16.0); LYMPHOCYTES # (AUTO) 1.7 K/uL (2.5-16.5); LYMPHOCYTES % (AUTO) 24.8 % (20.5-51.1); MEAN CORPUSCULAR HEMOGLOBIN 25 pg (27-31); MEAN CORPUSCULAR HGB CONC 33 g/dL (33-37); MEAN CORPUSCULAR VOLUME 77.8 fL (80-94); MONOCYTES # (AUTO) 0.6 K/uL (0.8-1.0); MONOCYTES % (AUTO) 9.3 % (1.7-9.3); NEUTROPHILS # (AUTO) 4.4 K/uL (1.8-7.7); NEUTROPHILS % (AUTO) 63.6 % (42.2-75.2); PLATELET COUNT (AUTO) 278 K/uL (140-450); RED BLOOD CELL COUNT(AUTO) 4.68 MIL/uL (4.20-5.40); RED CELL DISTRIBUTION WIDTH 15.3 % (11.6-13.7); WHITE BLOOD COUNT (AUTO) 6.9 K/uL (4.8-10.8)
[2018-10-10 10:52] LABS: ANION GAP 12.4 (8-16); CREATININE 0.7 mg/dL (0.6-1.3); POTASSIUM 3.4 mmol/L (3.5-5.1)
[2018-10-10 10:53] LABS: ALBUMIN 3.1 g/dL (3.4-5.0); TOTAL BILIRUBIN 1.1 mg/dL (0.0-1.0)
[2018-10-10 12:08] LABS: RBC,URINE NONE SEEN /HPF (0-5)
[2018-10-10 13:15] VITALS: BP 114/72
== END 2018-10-10 13:15 | disposition home or self-care (01) ==
LOC: MED 07:52
DX: R07.9 Chest pain, unspecified (principal); R53.1 Weakness; R35.0 Frequency of micturition; K21.9 Gastro-esophageal reflux disease without esophagitis; Z90.49 Acquired absence of other specified parts of digestive tract; Z79.899 Other long term (current) drug therapy
CPT/HCPCS: 36415; 71046; 80053; 81001; 81025; 84484; 85025; 87086; 93005; 96374; 96375; 99284; C9113; J1885

== ENCOUNTER 2020-10-09 19:30 | Emergency (ER) | payer OTHER ==
[~2020-10-09] VITALS: Ht 157.5 cm; Wt 127.0 kg
[~2020-10-09 19:30] MED LIST changes: +HYDR-5080 PO; -HYDR-5123 PO
[2020-10-09 19:50] VITALS: BP 102/72
--- NOTE | 2020-10-09 19:53 | NUR ---
TO LOBBY A/W BED VIA W/C
[2020-10-09] MEDS ORDERED: ONDANSETRON 4 MG ODT PO ONE (20:05)
[2020-10-09] MEDS ORDERED: NACL 0.9% 1,000 ML IV ONE (20:05)
[2020-10-09 20:30] LABS: BASOPHILS % (AUTO) 0.2 % (0.0-2.0); HEMATOCRIT 49.7 % (36-48); HEMOGLOBIN 16.5 g/dL (12.0-16.0); LYMPHOCYTES # (AUTO) 0.7 K/uL (2.5-16.5); LYMPHOCYTES % (AUTO) 8.6 % (20.5-51.1); MEAN CORPUSCULAR HEMOGLOBIN 26 pg (27-31); MEAN CORPUSCULAR HGB CONC 33 g/dL (33-37); MEAN CORPUSCULAR VOLUME 78.7 fL (80-94); MONOCYTES # (AUTO) 0.7 K/uL (0.8-1.0); MONOCYTES % (AUTO) 8.2 % (1.7-9.3); NEUTROPHILS # (AUTO) 6.8 K/uL (1.8-7.7); PLATELET COUNT (AUTO) 292 K/uL (140-450); RED BLOOD CELL COUNT(AUTO) 6.31 MIL/uL (4.20-5.40); RED CELL DISTRIBUTION WIDTH 15.7 % (11.6-13.7); WHITE BLOOD COUNT (AUTO) 8.2 K/uL (4.8-10.8)
[2020-10-09 20:45] LABS: ALBUMIN 3.1 g/dL (3.4-5.0); ANION GAP 15.6 (8-16); CARBON DIOXIDE 24.3 mmol/L (21-32); CREATININE 0.9 mg/dL (0.6-1.3); POTASSIUM 3.9 mmol/L (3.5-5.1)
--- NOTE | 2020-10-09 23:16 | NUR ---
patient ambulated to bed 11
--- NOTE | 2020-10-09 23:18 | NUR ---
N/V/D FOR 5 DAYS, CANT STAND FEELS WEAK. BACK PAIN X1 DAY. PATIENT 10/10 PAIN AND HEAVINESS. FEELING EXTREMELY THIRSTY LATELY. PATIENT DENIES SOB OR DIFFICULTY BREATHING. PATIENT WAS BROUGHT IN THE URGENT CARE DUE TO STREP AND HAVE BEEN ON ANTIBIOTICS. AAOX4. PATIENT DENIES TAKING ANY PAIN MEDICATION. PMH: GALLBLADDER REMOVAL NAVEED
--- NOTE | 2020-10-10 00:23 | NUR ---
Patient appears to be resting comfortably in bed. Respirations even and unlabored. Patient feels like she is some pain but is tolerable
[2020-10-10 00:30] LABS: APPEARANCE,URINE HAZY (CLEAR); BILIRUBIN,URINE NEGATIVE (NEGATIVE); BLOOD, URINE 2+ (NEGATIVE); COLOR,URINE YELLOW (YELLOW); LEUKOCYTE ESTERASE ,URINE NEGATIVE (NEGATIVE); NITRITE, URINE NEGATIVE (NEGATIVE); UGLUCOSE NEGATIVE (NEGATIVE)
[2020-10-10] MEDS ORDERED: KETOROLAC 30 MG/ML VIAL IVP ONE ×3 (00:55→01:40)
[2020-10-10 01:37] LABS: WBC,URINE 0-5 /HPF (0-5)
[2020-10-10] MEDS ORDERED: ETHYL CHLORIDE 105 ML SPR TP ONE (01:40)
--- NOTE | 2020-10-10 02:02 | NUR ---
patient ambulated to the bathroom.
[2020-10-10] MEDS ORDERED: NACL 0.9% 1,000 ML IV SCH (02:45)
[2020-10-10] MEDS ORDERED: cefTRIAXone 2,000 MG in DEXTROSE 5% 100 ML IV ONE (02:45)
[2020-10-10] MEDS ORDERED: CEPH-588 PO (02:46)
[2020-10-10] MEDS ORDERED: cefTRIAXone 2,000 MG in LIDOCAINE MPF 1% 2.1 ML IM ONE (03:35)
[2020-10-10] MEDS ORDERED: LIDOCAINE MPF 1% 5 ML ONE (03:41)
[2020-10-10] MEDS ORDERED: cefTRIAXone 1,000 MG VIAL ONE (03:41)
--- NOTE | 2020-10-10 03:45 | NUR ---
IV removed, catheter intact and site benign. Applied folded 4x4 gauze and tape to stop bleeding.
[2020-10-10 04:00] VITALS: BP 100/68
== END 2020-10-10 04:00 | disposition home or self-care (01) ==
LOC: MED 19:30
DX: N39.0 Urinary tract infection, site not specified (principal)
CPT/HCPCS: 36415; 80053; 81001; 83690; 84703; 85025; 87086; 96361; 96372; 96374; 99284; J0696; J1885; J2001; J7030; Q0162